=== PATIENT | male | born 1990 | race Caucasian/White ===

== ENCOUNTER 2016-10-28 09:51 | Observation (INO) | payer OTHER ==
[~2016-10-28] VITALS: Ht 188 cm; Wt 110.0 kg
[2016-10-28] MEDS: ONDANSETRON INJ 2 MG/ML 2 ML VIAL IV PRN ×3 (10:27→14:40)
[2016-10-28] MEDS ORDERED: SODIUM CHLORIDE 0.9% 1000ML 2,000 ML IV ONE (10:30)
[2016-10-28] MEDS ORDERED: CETI10TA10 PO (10:41)
[2016-10-28 10:42] LABS: MEAN CELL VOLUME 89.2 fL (80-100); MEAN CORPUSCULAR HEMOGLOBIN 31.4 pg (25-34); MEAN CORPUSCULAR HGB CONC 35.2 g/dl (32-36); MEAN PLATELET VOLUME 11.4 fL (7.4-10.4); PLATELET COUNT 183 K/uL (130-400); RED BLOOD COUNT 4.93 M/uL (4.7-6.1); WHITE BLOOD COUNT 5.34 K/uL (4.8-10.8)
--- NOTE | 2016-10-28 10:47 | EMERGENCY ROOM VISIT NOTE ---
History Report prepared by Usha: Colin Dangelo Under the Supervision of: Dr. Abelino Joy M.D. First contact with patient: 10:13 Chief Complaint: VOMITING Stated Complaint: VOMITING,DIZZINESS,SHAKINESS,DEHYDRATION Nursing Triage Summary: Patient c/o dizziness, being off balance x 10-12 hours as well as n/v this am. History of Present Illness The patient is a 25 year old male who presents to the Emergency Room with complaints of persistent weakness that started last night. The patient also complains of nausea, dizziness, cold sweats, one episode of vomiting, and feeling dehydrated. He states that he worked a 12-hour shift yesterday and did not eat or drink much throughout the day. When he got home, he drank water and Gatorade and tried to sleep it off. However, he felt worse when he woke up this morning. He tried to drink water again this morning, but was unable to keep it down. He states that he does take supplements, but he hasn't made any changes to the supplements he typically takes recently. He notes that two weeks ago, he had flu-like symptoms including fever and weakness. However, his symptoms today feel different. He denies fever or diarrhea at this time. Source of History: patient Onset: last night Position: other (global) Timing: other (persistent) Associated Symptoms: + nausea, + vomiting, No diarrhea, No fevers Note: Other associated symptoms: dizziness, cold sweats, feeling dehydrated Review of Systems All systems have been listed, reviewed, and are negative other than those previously mentioned. Please see Additional Medical History Sheet. Past Medical & Surgical Medical Problems: (1) Asthma (2) Stomach problems Surgical Problems: (1) [place] teeth extracted Family History FH: cancer FH: diabetes mellitus FH: hypertension FHx: heart disease Kidney stone Social History Smoking Status: Never Smoker Housing Status: lives with roommate Occupation Status: employed Current/Historical Medications Scheduled Cetirizine Hcl (Zyrtec), 10 MG PO Q2D Ondasetron Odt (Zofran Odt), 4 MG SL Q6H Allergies Coded Allergies: Penicillins (Unverified Allergy, Unknown, ., 10/28/16) Physical Exam Vital Signs Date Time Temp Pulse Resp B/P Pulse Ox O2 Delivery O2 Flow Rate FiO2 10/28/16 15:34 70 16 177/93 100 Room Air 10/28/16 13:30 73 16 141/72 99 10/28/16 11:12 73 17 140/74 100 Room Air 10/28/16 09:57 36.5 75 17 150/86 100 Room Air Physical Exam GENERAL: Patient awake, alert, oriented x 3. Patient follows commands. Patient does not appear toxic. Patient is adequately hydrated and well- nourished. SKIN: No erythema, pallor, cyanosis or rash HEENT: Normal head, pupils equal, reactive to light and accommodation. Neck: Without adenopathy, no neck vein distention. LUNGS: Clear to auscultation. No wheezes, no rales, no rhonchi. HEART: No murmurs. No gallops. No rubs ABDOMEN: No masses, no rebound, no hepatomegaly or splenomegaly. EXTREMITIES: No signs of trauma. No pedal or pretibial edema. No calf or thigh tenderness. NEUROLOGIC: Cranial nerves II-XII within normal limits. No gross motor sensory function deficits. Medical Decision & Procedures Laboratory Results 10/28/16 10:25 10/28/16 10:25 Test 10/28/16 10:25 10/28/16 11:40 10/28/16 12:45 Red Blood Count 4.93 M/uL (4.7-6.1) Mean Corpuscular Volume 89.2 fL (80-100) Mean Corpuscular Hemoglobin 31.4 pg (25-34) Mean Corpuscular Hemoglobin Concent 35.2 g/dl (32-36) RDW Standard Deviation 40.1 fL (36.4-46.3) RDW Coefficient of Variation 12.3 % (11.5-14.5) Mean Platelet Volume 11.4 fL (7.4-10.4) Anion Gap 8.0 mmol/L (3-11) Est Creatinine Clear Calc Drug Dose 137.9 ml/min Estimated GFR () 108.3 Estimated GFR (Non- 93.5 BUN/Creatinine Ratio 11.9 (10-20) Calcium Level 9.1 mg/dl (8.5-10.1) Lipase 162 U/L (73-393) Chemistry Specimen Hemolysis Urine Color YELLOW Urine Appearance CLOUDY (CLEAR) Urine pH >= 9.0 (4.5-7.5) Urine Specific [place] 1.011 (1.000-1.030) Urine Protein NEG (NEG) Urine Glucose (UA) NEG (NEG) Urine Ketones NEG (NEG) Urine Occult Blood NEG (NEG) Urine Nitrite NEG (NEG) Urine Bilirubin NEG (NEG) Urine Urobilinogen NEG (NEG) Urine Leukocyte Esterase NEG (NEG) Urine WBC (Auto) 1-5 /hpf (0-5) Urine RBC (Auto) 0-4 /hpf (0-4) Urine Hyaline Casts (Auto) 0 /lpf (0-5) Urine Epithelial Cells (Auto) 5-10 /lpf (0-5) Urine Bacteria (Auto) NEG (NEG) Urine Renal Epithelial Cells /lpf (0-5) Urine Crystals AMORPHOUS SEDIMENT (NONE Influenza Type A Antigen Neg for Influ A (NEG) Influenza Type B Antigen Neg for Influ B (NEG) Laboratory results as stated above per my review. Medications Administered Medications (Trade) Dose Ordered Sig/Herrera Route Start Time Stop Time Status Last Admin Dose Admin Ondansetron HCl 4 mg 4 mg Q1HWA PRN IV 10/28/16 10:30 11/27/16 10:29 10/28/16 14:40 4 MG Sodium Chloride (Nss 1000ml) 2,000 ml @ 1,000 mls/hr Q2H ONCE IV 10/28/16 10:30 10/28/16 12:29 DC 10/28/16 10:28 1,000 MLS/HR Acetaminophen 1000 mg 1,000 mg NOW STAT PO 10/28/16 11:51 10/28/16 11:52 DC 10/28/16 12:03 1,000 MG Sodium Chloride (Nss 1000ml) 1,000 ml @ 1,000 mls/hr Q1H ONCE IV 10/28/16 14:45 10/28/16 15:44 10/28/16 14:40 1,000 MLS/HR Promethazine HCl (Phenergan Inj) 25 mg STK-MED ONCE .ROUTE 10/28/16 15:34 10/28/16 15:35 DC 10/28/16 15:35 25 MG ED Course 1013: Past medical records reviewed. The patient was evaluated in room B8. A complete history and physical examination was performed. 1030: Ordered NSS 2000 ml @ 1000 mls/hr IV, Zofran Inj 4 mg IV. 1151: Ordered Tylenol Tab 1000 mg PO. 1338: At this time, I reevaluated the patient and he was feeling better. He is going to try to eat and see how he feels after. 1540 patient began vomiting again and therefore he was given Phenergan and more IV fluids. Medical Decision Differential diagnoses include acute gastroenteritis, dehydration, or metabolic disorder. Multiple labs and urinalysis were obtained. Please see above. The patient initially had some abdominal pain which resolved. He then developed a headache which resolved after Tylenol. Prior to departure patient felt significantly better. Patient most likely has a viral cause for his symptoms. The patient was about to be discharged but then began vomiting again. The patient was given more IV fluids and Phenergan. I discussed care with Dr. Iqbal who will take over the case. If the patient symptoms resolve in the near future he may be at a be discharged otherwise he will require a stay in the hospital. Impression Primary Impression: Viral infection Additional Impression: Acute gastroenteritis Scribe Attestation The scribe's documentation has been prepared under my direction and personally reviewed by me in its entirety. I confirm that the note above accurately reflects all work, treatment, procedures, and medical decision making performed by me. Departure Information Dispostion Home / Self-Care Prescriptions Ondasetron Odt (ZOFRAN ODT) 4 Mg Tab 4 MG SL Q6H for Nausea, #6 TAB Prov: Abelino Joy M.D. 10/28/16 Referrals No Doctor, Assigned (PCP) Forms HOME CARE DOCUMENTATION FORM, IMPORTANT VISIT INFORMATION Patient Instructions My [facility] Additional Instructions 1 Zofran every 4 hours as needed for nausea. Drink at least 4 quarts of liquid over the next 24 hours. 1000 g of Tylenol every 4-6 hours as needed for headache, aches or pains. Return here if you are unable to hold down liquids. Otherwise follow-up with a family physician within the next 10 days. Problem Qualifiers
[2016-10-28 11:04] LABS: BUN/CREATININE RATIO 11.9 (10-20); CALCIUM 9.1 mg/dl (8.5-10.1); CREATININE 1.1 mg/dl (0.60-1.40); POTASSIUM 3.6 mmol/L (3.5-5.1)
[2016-10-28] MEDS ORDERED: ACETAMINOPHEN 325 MG TAB PO STA (11:51)
[2016-10-28 12:00] LABS: URINE APPEARANCE CLOUDY (CLEAR); URINE BILIRUBIN NEG (NEG); URINE COLOR YELLOW; URINE NITRITE NEG (NEG); URINE PH >= 9.0 (4.5-7.5); URINE SPECIFIC GRAVITY 1.011 (1.000-1.030); UROBILINOGEN NEG (NEG); ZZUR CULT IF INDIC CLEAN CATCH NO
[2016-10-28 12:01] LABS: MANUAL MICROSCOPIC REQUIRED? NO; REVIEW REQ? YES
[2016-10-28] MEDS ORDERED: ONDA4TAB10 SL (13:19)
[2016-10-28] MEDS ORDERED: SODIUM CHLORIDE 0.9% 1000ML 1,000 ML IV ONE (14:45)
[2016-10-28] MEDS ORDERED: PROMETHAZINE HCL INJ 12.5 MG in SODIUM CHLORIDE 0.9% 50ML 50 ML IV STA (15:09)
[2016-10-28] MEDS ORDERED: PROMETHAZINE HCL INJ 25 MG/ML 1 ML VIAL ONE (15:34)
[2016-10-28] MEDS ORDERED: DIAZEPAM INJ 5 MG/ML 2 ML CARP IV STA (16:19)
[2016-10-28] MEDS ORDERED: DIAZEPAM INJ 5 MG/ML 2 ML CARP IV PRN (16:30)
--- NOTE | 2016-10-28 17:11 | DIAGNOSTIC IMAGING REPORT ---
HEAD CT NONCONTRAST CT DOSE: 601.98 mGy.cm HISTORY: vertiginous symptoms TECHNIQUE: Multiaxial CT images of the head were performed without the use of intravenous contrast. Automated exposure control was utilized for this study. Comparison: None. Findings: The paranasal sinuses and mastoid air cells are clear. The calvarium and skull base are intact. The ventricles and sulci are within normal limits. There is no mass, hematoma, midline shift, or acute infarct. Incidental note is made of a cavum septa pellucida. Impression: No acute intracranial abnormality. Electronically signed by: Teddy Davidson M.D. 10/28/2016 5:09 PM Dictated Date/Time: 10/28/2016 5:05 PM
[2016-10-28] MEDS ORDERED: ACETAMINOPHEN 325 MG TAB PO PRN (18:45)
[2016-10-28] MEDS ORDERED: ONDANSETRON INJ 2 MG/ML 2 ML VIAL IV PRN (18:45)
--- NOTE | 2016-10-28 18:50 | History and Physical ---
History & Physical Date & Time of Service: Oct 28, 2016 at 18:39 Chief Complaint: Vomiting,Dizziness,Shakiness,Dehydration Primary Care Physician: No Doctor, Assigned History of Present Illness Source: patient The patient is a 25 year old male with no PMH who presents to the Emergency Room with complaints of nausea, vomiting, generalized weakness since last night. Patient had flu like symptoms 2-3 weeks ago when he was treated with Azithromycin x 5 days. Flu test than came back negative. Recovered from symptoms. Was apparently at his baseline till yesterday night, when he developed nausea, vomiting. 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 When he got home, he drank water, gatorade and tried to sleep off. He woke up this morning feeling worse- significant weakness, vomiting x 1 more episode, nausea. Was unable to keep anything down. No fever, chills, abdominal pain, diarrhea, chest pain, SOB, cough, nasal congestion associated with it. He also threw up once while in ED. Received IV fluids x 1 bag. Was going to be discharged from ED to home, but started feeling dizzy, unable to keep balance while walking, unable to keep anything down due to vomiting and thus decided to admit him overnight under observation. T In ED, vitals are stable. Labs- no significant abnormalities. Received IV Zofran , IV Valium x 1 dose for dizziness which helped him, IVF. Will admit under observation for acute gastroenteritis as unable to keep anything down due to nausea, vomiting, generalized weakness. Past Medical/Surgical History Medical Problems: (1) Asthma Status: Chronic (2) Stomach problems Status: Chronic Surgical Problems: (1) [place] teeth extracted Status: Resolved Family History FH: cancer FH: diabetes mellitus FH: hypertension FHx: heart disease Kidney stone Social History Smoking Status: Never Smoker Occupational Status: employed Allergies Coded Allergies: Penicillins (Unverified Allergy, Unknown, ., 10/28/16) Home Medications Scheduled Cetirizine Hcl (Zyrtec), 10 MG PO Q2D Ondasetron Odt (Zofran Odt), 4 MG SL Q6H Review of Systems Constitutional: + fatigue, No chills, No fever Eyes: No eye pain, No worsening of vision ENT: No hearing loss, No nasal symptoms Respiratory: No cough, No shortness of breath, No sputum, No wheezing Cardiovascular: No chest pain, No edema Abdomen: No nausea, No pain, No vomiting Musculoskeletal: No joint pain, No swelling Genitourinary - Male: No dysuria, No hematuria, No urinary frequency Neurologic: No paralysis Psychiatric: No depression symptoms Endocrine: + fatigue Hematologic / Lymphatic: No abnormal bleeding/bruising Integumentary: No rash Physical Exam Vital Signs Date Time Temp Pulse Resp B/P Pulse Ox O2 Delivery O2 Flow Rate FiO2 10/28/16 17:12 72 14 151/80 100 Room Air 10/28/16 15:34 70 16 177/93 100 Room Air 10/28/16 13:30 73 16 141/72 99 10/28/16 11:12 73 17 140/74 100 Room Air 10/28/16 09:57 36.5 75 17 150/86 100 Room Air General Appearance: no apparent distress Head: normocephalic, atraumatic Eyes: sclerae normal ENT: hearing grossly normal Neck: supple, no JVD Respiratory/Chest: chest non-tender, lungs clear, normal breath sounds, no respiratory distress, no accessory muscle use Cardiovascular: regular rate, rhythm, no murmur Abdomen/GI: normal bowel sounds, non tender, soft Extremities/Musculoskelatal: no calf tenderness, no pedal edema Neurologic/Psych: no motor/sensory deficits, alert, oriented x 3 Diagnostics Laboratory Results Results Past 24 Hours Test 10/28/16 10:25 10/28/16 11:40 10/28/16 12:45 Range/Units White Blood Count 5.34 4.8-10.8 K/uL Red Blood Count 4.93 4.7-6.1 M/uL Hemoglobin 15.5 14.0-18.0 g/dL Hematocrit 44.0 42-52 % Mean Corpuscular Volume 89.2 80-100 fL Mean Corpuscular Hemoglobin 31.4 25-34 pg Mean Corpuscular Hemoglobin Concent 35.2 32-36 g/dl RDW Standard Deviation 40.1 36.4-46.3 fL RDW Coefficient of Variation 12.3 11.5-14.5 % Platelet Count 183 130-400 K/uL Mean Platelet Volume 11.4 7.4-10.4 fL Sodium Level 143 136-145 mmol/L Potassium Level 3.6 3.5-5.1 mmol/L Chloride Level 104 98-107 mmol/L Carbon Dioxide Level 31 21-32 mmol/L Anion Gap 8.0 3-11 mmol/L Blood Urea Nitrogen 13 7-18 mg/dl Creatinine 1.10 0.60-1.40 mg/dl Est Creatinine Clear Calc Drug Dose 137.9 ml/min Estimated GFR () 108.3 Estimated GFR (Non- 93.5 BUN/Creatinine Ratio 11.9 10-20 Random Glucose 117 70-99 mg/dl Calcium Level 9.1 8.5-10.1 mg/dl Total Creatine Kinase 597 39-308 U/L Lipase 162 73-393 U/L Chemistry Specimen Hemolysis Urine Color YELLOW Urine Appearance CLOUDY CLEAR Urine pH >= 9.0 4.5-7.5 Urine Specific [place] 1.011 1.000-1.030 Urine Protein NEG NEG Urine Glucose (UA) NEG NEG Urine Ketones NEG NEG Urine Occult Blood NEG NEG Urine Nitrite NEG NEG Urine Bilirubin NEG NEG Urine Urobilinogen NEG NEG Urine Leukocyte Esterase NEG NEG Urine WBC (Auto) 1-5 0-5 /hpf Urine RBC (Auto) 0-4 0-4 /hpf Urine Hyaline Casts (Auto) 0 0-5 /lpf Urine Epithelial Cells (Auto) 5-10 0-5 /lpf Urine Bacteria (Auto) NEG NEG Urine Renal Epithelial Cells 0-5 /lpf Urine Crystals AMORPHOUS SEDIMENT NONE PRSENT Influenza Type A Antigen Neg for Influ A NEG Influenza Type B Antigen Neg for Influ B NEG Diagnostic Radiology CT head : Impression: No acute intracranial abnormality. Impression Assessment and Plan NAUSEA/VOMITING/DIZZINESS: Likely Acute gastroenteritis associated with volume depletion secondary to nausea/vomiting, inadequate PO intake while working 12 hour shift yesterday. As unable to take anything PO, dizziness , difficulty ambulating with significant generalized weakness, decided to admit under observation -IV fluids - NS at 100 cc/hour . Mechanical soft, low lactose diet as tolerated -IV Zofran PRN -Symptomatic Rx. No indication of antibiotics -Work up- Influenza negative, no diarrhea. CT head done for dizziness-Negative for acute abnormalities DVT PROPHYLAXIS Low risk SCDS Ambulation encouraged once feels better GI PROPHYLAXIS Protonix daily DISPOSITION Observation status Expected discharge home when stable - Level of Care Med/Surg Resuscitation Status FULL RESUSCITATION VTE Prophylaxis VTE Risk Assessment Done? Y/N: Yes Risk Level: Very Low Given or contraindicated: Treatment not indicated
[2016-10-28 20:12] VITALS: BP 131/71; PULSE 82; TEMP 36.9; O2SAT 100; Ht 188 cm; Wt 110.0 kg
[2016-10-28] MEDS: SODIUM CHLORIDE 0.9% 1000ML 1,000 ML IV SCH (20:41)
[2016-10-28] MEDS ORDERED: IV FLUIDS COMPLETED PRN (20:45)
--- NOTE | 2016-10-29 00:08 | EMERGENCY ROOM VISIT NOTE ---
ED Visit Note First contact with patient: 15:54 25 yr old male with 12 hours of severe dizziness, vomiting and lightheaded which started with work last night. Notes URI about 2 weeks ago. 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 Received 3 L NSS, multiple rounds Zofran and phenergan when signed out to me by Dr Joy awaiting re-evaluation. On exam with continued dizziness noting the world is still spinning. Exam with significant right horizontal nystagmus. Ears clear and no neuro deficits. CT done which was unremarkable. Given 2 doses valium with vast improvement though unable to walk straight due to continued spinning. Given persistent symptoms even after extensive treatment I feel that he will need to come in for further evaluation/treatment. Discussed with hospitalist for further work-up.
[2016-10-29 04:45] LABS: BENZODIAZEPINE, URINE POS (NEG); COCAINE,URINE NEG (NEG); PHENCYCLIDINE, URINE NEG (NEG)
[2016-10-29] MEDS: SODIUM CHLORIDE 0.9% 1000ML 1,000 ML IV SCH ×2 (06:35→14:52)
[2016-10-29 07:53] VITALS: BP 149/73; PULSE 77; TEMP 36.5; O2SAT 98
[2016-10-29 07:53] LABS: HEMATOCRIT 41.3 % (42-52); MEAN CELL VOLUME 90.6 fL (80-100); MEAN CORPUSCULAR HEMOGLOBIN 30.9 pg (25-34); MEAN CORPUSCULAR HGB CONC 34.1 g/dl (32-36); MEAN PLATELET VOLUME 11.6 fL (7.4-10.4); PLATELET COUNT 175 K/uL (130-400); RED BLOOD COUNT 4.56 M/uL (4.7-6.1); WHITE BLOOD COUNT 5.91 K/uL (4.8-10.8)
[2016-10-29 08:23] LABS: ALB/GLOB RATIO 1.3 (0.9-2); BUN/CREATININE RATIO 7.6 (10-20); CALCIUM 8.6 mg/dl (8.5-10.1); POTASSIUM 3.6 mmol/L (3.5-5.1)
[2016-10-29] MEDS: PANTOprazole SOD 40 MG TAB PO SCH ×2 (09:45→10:30)
[2016-10-29] MEDS ORDERED: MECLIZINE HCL 25 MG TAB PO PRN (12:00)
--- NOTE | 2016-10-29 12:00 | Progress Note ---
Internal Med Progress Note Date of Service: Oct 29, 2016. Provider Documentation: SUBJECTIVE: Patient is feeling better overall. Vertigo worse with fast head movements. Able to ambulate better, but still feels a bit unsteady due to vertigo. No ear pain, discharge noted. Nausea, vomiting resolved. Tolerated soft diet. No headaches, fever, chills, abd pain, diarrhea, localized weakness/numbness. OBJECTIVE: Vital Signs-as noted below Exam: General-AAOX3, no distress Eyes-No nystagmus, Icterus Neck-Supple, NO JVD Lungs-AEBE, no wheezing, crackles, rhonchi Heart-S1, S2 normal, no murmurs Abdomen-Soft, non tender, non distended, BS present Extremities-No edema Neuro-AAOX3, no nystagmus, Motor- 5/5 all extremities Lab data as noted below. ASSESSMENT & PLAN: VERTIGO, Likely peripheral/Benign Patient came for one day symptoms of Dizziness, described as vertigo, nausea, vomiting. Initially, it was thought to be likely acute gastroenteritis, however, primary complaint is vertigo, did not have any associated abdominal pain, diarrhea, leucocytosis, so its possible nausea/vomiting was related to vertigo. Nausea/vomiting has resolved, vertigo has improved, but still persists with worsening with fast movement of head. Does have issues with motion sickness and feels similar. No associated headache, chronic vertigo, anorexia, localized weakness, nystagmus , -Will continue with IVF -Meclizine 25 mg PO TID prn for vertigo -Work up- Influenza negative, no diarrhea. CT head done for Vertigo -Negative for acute abnormalities AMBULATORY DYSFUNCTION Secondary to vertigo- Improved today. -Still required a walker while going to the bathroom -Will try to ambulate again today DVT PROPHYLAXIS Low risk SCDS Ambulation encouraged once feels better GI PROPHYLAXIS Protonix daily DISPOSITION Observation status Expected discharge home likely today if feels better Vital Signs: Date Time Temp Pulse Resp B/P Pulse Ox O2 Delivery O2 Flow Rate FiO2 10/29/16 10:42 Room Air 10/29/16 07:53 36.5 77 16 149/73 98 Room Air 10/28/16 20:12 36.9 82 16 131/71 100 Room Air 10/28/16 19:45 79 143/89 99 10/28/16 19:00 88 17 130/72 99 Room Air 10/28/16 17:12 72 14 151/80 100 Room Air 10/28/16 15:34 70 16 177/93 100 Room Air 10/28/16 13:30 73 16 141/72 99 Lab Results: Results Past 24 Hours Test 10/28/16 12:45 10/29/16 04:10 10/29/16 07:10 Range/Units Influenza Type A Antigen Neg for Influ A NEG Influenza Type B Antigen Neg for Influ B NEG Urine Opiates Screen NEG NEG Urine Methadone, Qualitative NEG NEG Urine Barbiturates NEG NEG Urine Phencyclidine (PCP) Level NEG NEG Ur Amphetamine/Methamphetamine NEG NEG MDMA (Ecstasy) Screen NEG NEG Urine Benzodiazepines Screen POS NEG Urine Cocaine Metabolite NEG NEG Urine Marijuana (THC) NEG NEG White Blood Count 5.91 4.8-10.8 K/uL Red Blood Count 4.56 4.7-6.1 M/uL Hemoglobin 14.1 14.0-18.0 g/dL Hematocrit 41.3 42-52 % Mean Corpuscular Volume 90.6 80-100 fL Mean Corpuscular Hemoglobin 30.9 25-34 pg Mean Corpuscular Hemoglobin Concent 34.1 32-36 g/dl RDW Standard Deviation 41.1 36.4-46.3 fL RDW Coefficient of Variation 12.4 11.5-14.5 % Platelet Count 175 130-400 K/uL Mean Platelet Volume 11.6 7.4-10.4 fL Sodium Level 143 136-145 mmol/L Potassium Level 3.6 3.5-5.1 mmol/L Chloride Level 107 98-107 mmol/L Carbon Dioxide Level 29 21-32 mmol/L Anion Gap 7.0 3-11 mmol/L Blood Urea Nitrogen 8 7-18 mg/dl Creatinine 1.00 0.60-1.40 mg/dl Est Creatinine Clear Calc Drug Dose 150.4 ml/min Estimated GFR () 121.6 Estimated GFR (Non- 104.9 BUN/Creatinine Ratio 7.6 10-20 Random Glucose 86 70-99 mg/dl Calcium Level 8.6 8.5-10.1 mg/dl Total Bilirubin 0.9 0.2-1 mg/dl Aspartate Amino Transf (AST/SGOT) 20 15-37 U/L Alanine Aminotransferase (ALT/SGPT) 27 12-78 U/L Alkaline Phosphatase 64 45-117 U/L Total Protein 6.6 6.4-8.2 gm/dl Albumin 3.7 3.4-5.0 gm/dl Globulin 2.9 2.5-4.0 gm/dl Albumin/Globulin Ratio 1.3 0.9-2
[2016-10-29 15:40] VITALS: BP 149/87; PULSE 90; TEMP 36.7; O2SAT 99
[2016-10-29] MEDS ORDERED: ANT25 PO (15:48)
--- NOTE | 2016-10-29 15:50 | Discharge Instructions ---
Discharge Instructions Date of Service Oct 29, 2016. Admission Reason for Admission: Acute Gastroenteritis Discharge Discharge Diagnosis / Problem: 1. Vertigo Discharge Goals Goal(s): Therapeutic intervention Activity Recommendations Activity Limitations: resume your previous activity (as tolerated. Avoid driving till symptoms improve) . Instructions / Follow-Up Instructions / Follow-Up MEDICATION CHANGES: 1. New medication: Meclizine 25 mg three times a day (every 8 hours) as needed for vertigo FOLLOW UP 1. Follow up with Dr An 11/05/16 at 1:45 PM Current Hospital Diet Patient's current hospital diet: Regular Diet Discharge Diet Recommended Diet: Regular Diet Pending Studies Studies pending at discharge: no Medical Emergencies . Who to Call and When: Medical Emergencies: If at any time you feel your situation is an emergency, please call 911 immediately. . Non-Emergent Contact Non-Emergency issues call your: Primary Care Provider . . "Provider Documentation" section prepared by Azalia Gray. VTE Core Measure Inpt VTE Proph given/why not?: Treatment not indicated
--- NOTE | 2016-10-29 15:57 | Discharge Summary ---
Discharge Summary Date of Service Oct 29, 2016. Discharge Summary Admission Date: Oct 28, 2016 at 18:36 Discharge Date: Oct 29, 2016 Discharge Disposition: Home Principal Diagnosis: 1. Vertigo, likely peripheral/Benign Procedures: IV fluids Supportive care CT Head Consultations: None Pending Studies/Follow-Up: Instructions / Follow-Up MEDICATION CHANGES: 1. New medication: Meclizine 25 mg three times a day (every 8 hours) as needed for vertigo FOLLOW UP 1. Follow up with Dr An 11/05/16 at 1:45 PM Medication Reconciliation New Medications: Meclizine HCl (Meclizine HCl) 25 Mg Tab 25 MG PO TID for VERTIGO for 5 Days, #15 TAB Continued Medications: Cetirizine Hcl (Zyrtec) 10 Mg Tab 10 MG PO Q2D, TAB Ondasetron Odt (Zofran Odt) 4 Mg Tab 4 MG SL Q6H for Nausea, #6 TAB Admission Information HPI (per Admitting provider): The patient is a 25 year old male with no PMH who presents to the Emergency Room with complaints of nausea, vomiting, generalized weakness since last night. Patient had flu like symptoms 2-3 weeks ago when he was treated with Azithromycin x 5 days. Flu test than came back negative. Recovered from symptoms. Was apparently at his baseline till yesterday night, when he developed nausea, vomiting. 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 When he got home, he drank water, gatorade and tried to sleep off. He woke up this morning feeling worse- significant weakness, vomiting x 1 more episode, nausea. Was unable to keep anything down. No fever, chills, abdominal pain, diarrhea, chest pain, SOB, cough, nasal congestion associated with it. He also threw up once while in ED. Received IV fluids x 1 bag. Was going to be discharged from ED to home, but started feeling dizzy, unable to keep balance while walking, unable to keep anything down due to vomiting and thus decided to admit him overnight under observation. T In ED, vitals are stable. Labs- no significant abnormalities. Received IV Zofran , IV Valium x 1 dose for dizziness which helped him, IVF. Will admit under observation for acute gastroenteritis as unable to keep anything down due to nausea, vomiting, generalized weakness. Physical Exam (per Admitting): General Appearance: no apparent distress Head: normocephalic, atraumatic Eyes: sclerae normal ENT: hearing grossly normal Neck: supple, no JVD Respiratory/Chest: chest non-tender, lungs clear, normal breath sounds, no respiratory distress, no accessory muscle use Cardiovascular: regular rate, rhythm, no murmur Abdomen/GI: normal bowel sounds, non tender, soft Extremities/Musculoskelatal: no calf tenderness, no pedal edema Neurologic/Psych: no motor/sensory deficits, alert, oriented x 3 Hospital Course VERTIGO, Likely peripheral/Benign Possible viral labyrinthitis Patient came for one day symptoms of Dizziness, described as vertigo, nausea, vomiting. Initially, it was thought to be likely acute gastroenteritis, however , primary complaint is vertigo, did not have any associated abdominal pain, diarrhea, leucocytosis, so its possible nausea/vomiting was related to vertigo. Nausea/vomiting has resolved, vertigo has improved. 2-3 weeks ago had flu like symptoms. -IV Fluids; Tolerating regular diet well -Meclizine 25 mg PO TID PRN for vertigo helped with symptoms -Zofran PRN -Work up - Influenza negative, no diarrhea. CT head done for Vertigo - Negative for acute abnormalities AMBULATORY DYSFUNCTION Secondary to vertigo- Improved today. Initially used walker, now able to ambulate in hallway without assistance. DVT PROPHYLAXIS Low risk SCDS Ambulation encouraged once feels better GI PROPHYLAXIS Protonix daily DISPOSITION Observation status Ok to discharge home today Total time spent on discharge = 25 minutes This includes examination of the patient, discharge planning, medication reconciliation, and communication with other providers. Discharge Instructions Activity Recommendations Activity Limitations: resume your previous activity (as tolerated. Avoid driving till symptoms improve) . Instructions / Follow-Up Instructions / Follow-Up MEDICATION CHANGES: 1. New medication: Meclizine 25 mg three times a day (every 8 hours) as needed for vertigo FOLLOW UP 1. Follow up with Dr An 11/05/16 at 1:45 PM Current Hospital Diet Patient's current hospital diet: Regular Diet Discharge Diet Recommended Diet: Regular Diet Pending Studies Studies pending at discharge: no Medical Emergencies . Who to Call and When: Medical Emergencies: If at any time you feel your situation is an emergency, please call 911 immediately. . Non-Emergent Contact Non-Emergency issues call your: Primary Care Provider . . "Provider Documentation" section prepared by Azalia Gray. VTE Core Measure Inpt VTE Proph given/why not?: Treatment not indicated
[2016-10-29 17:17] VITALS: BP 149/87; PULSE 90; TEMP 36.7; O2SAT 99
[2016-10-31 15:15] LABS: HYDROXYETHYLFLURAZEPAM CONF NEGATIVE NG/ML (CUTOFF=50); HYDROXYMIDAZOLAM NEGATIVE NG/ML (CUTOFF=50); HYDROXYTRIAZOLAM CONF NEGATIVE NG/ML (CUTOFF=50); TEMAZEPAM CONF 151 NG/ML (CUTOFF=50)
== END 2016-10-29 18:00 | disposition home or self-care (01) ==
LOC: ENRESERVDT → ENRESERVTM → C.EDB 09:52 → C.4E 18:36
PROVIDERS: ADMIT Internal Medicine; ATTEND Internal Medicine
DX: R42 Dizziness and giddiness (principal); R26.9 Unspecified abnormalities of gait and mobility; Z83.3 Family history of diabetes mellitus; Z82.49 Family history of ischemic heart disease and other diseases of the circulatory system